=== PATIENT | male | born 1935 | race Caucasian/White ===

== ENCOUNTER 2016-06-21 09:22 | Day surgery (SDC) | payer OTHER, MEDICARE ==
[2016-06-21] MEDS ORDERED: NS 1,000 ML IV ONE (09:23)
[2016-06-21] MEDS ORDERED: diphenhydrAMINE 25 MG CAP PO ONE ×2 (09:23→09:51)
[2016-06-21] MEDS ORDERED: DIAZEPAM 5 MG TAB PO ONE (09:23)
[2016-06-21] MEDS ORDERED: ASPIRIN EC 325 MG TAB PO ONE ×2 (09:23→09:51)
[2016-06-21] MEDS ORDERED: FAMOTIDINE 20 MG TAB PO ONE (09:23)
[2016-06-21] MEDS ORDERED: DIAZEPAM 5 MG TAB ONE (09:51)
[2016-06-21] MEDS ORDERED: FAMOTIDINE 20 MG TAB ONE (09:51)
--- NOTE | 2016-06-21 09:54 | CPEKG ---
Heart Rate: 70 RR Interval: 857 P-R Interval: 200 QRSD Interval: 86 QT Interval: 428 QTC Interval: 462 P [place]: 21 QRS [place]: 21 T Wave [place]: 5 EKG Severity - NORMAL ECG - EKG Impression: SINUS RHYTHM Electronically Signed By: Terrence Arriola 21-Jun-2016 10:55:09
[2016-06-21 10:08] LABS: % IMMATURE GRANULYOCYTES 0.2 % (0.0-1.1); ABSOLUTE IMMATURE GRANULOCYTES 0.01 10^3/uL (0.00-0.10); ADD DIFF? NO; ADD MORPH? NO; ADD SCAN? NO; ATYPICAL LYMPHOCYTE FLAG 10 (0-99); FRAGMENT RBC FLAG 0 (0-99); HEMOGLOBIN 17.7 g/dL (13.7-17.5); LEFT SHIFT FLG 0 (0-99); LIPEMIA HEMOLYSIS FLAG 90 (0-99); MEAN CELL HEMOGLOBIN 31.7 pg (27.9-34.1); MEAN CELL HEMOGLOBIN CONCENTR. 34.7 g/dL (32.4-36.7); MEAN CELL VOLUME 91.2 fL (81.5-99.8); MEAN PLATELET VOLUME 9.4 fL (8.7-11.7); PLATELET CLUMPS FLAG 30 (0-99); PLATELET COUNT 213 10^3/uL (150-400); RED BLOOD CELL COUNT 5.59 10^6/uL (4.40-6.38); RED CELL DISTRIBUTION WIDTH 12.8 % (11.5-15.2)
[2016-06-21 10:28] LABS: INR 1.01 (0.83-1.16); PROTIME(PATIENT) 13.2 SEC (12.0-15.0)
[2016-06-21 10:38] LABS: ANION GAP 13 mEq/L (8-16); CALCIUM 9.5 mg/dL (8.5-10.4); CARBON DIOXIDE 26 mEq/l (22-31); CHLORIDE 108 mEq/L (97-110); CHOLESTEROL 166 mg/dL (140-220); CHOLESTEROL/HDL RATIO 3.53 RATIO (1.00-4.97); CREATININE 0.8 mg/dL (0.7-1.3); GLOMERULAR FILTRATION RATE > 60; GLUCOSE 91 mg/dL (70-100); HIGH DENSITY LIPOPROTEIN 47 mg/dL (40-65); LDL/HDL RATIO 2.26 RATIO (1.00-3.64); LOW DENSITY LIPOPROTEIN 106 mg/dL (80-100); MAGNESIUM 2.2 mg/dL (1.6-2.3); NON-HIGH DENSITY LIPOPROTEIN 119 mg/dL (90-129); POTASSIUM 4.1 mEq/L (3.5-5.2); SODIUM 147 mEq/L (134-144); TRIGLYCERIDE 65 mg/dL (40-150); VERY LOW DENSITY LIPOPROTEINS 13 mg/dL (8-25)
[2016-06-21] MEDS ORDERED: LIDOCAINE 1% 30 ML SDV ONE (10:52)
[2016-06-21] MEDS ORDERED: HEPARIN 10,000 UNIT/10 ML MDV ONE (10:53)
[2016-06-21] MEDS ORDERED: fentaNYL 100 MCG/2 ML INJ ONE (10:53)
[2016-06-21] MEDS ORDERED: VERAPAMIL 5 MG/2 ML VIAL ONE (10:53)
[2016-06-21] MEDS ORDERED: IOPAMIDOL (ISOVUE-370) 150 ML BTL IV ONE ×2 (10:53→11:48)
[2016-06-21] MEDS ORDERED: ONDANSETRON 4 MG/2 ML VIAL IVP PRN (12:10)
[2016-06-21] MEDS ORDERED: NITROGLYCERIN 0.4 MG BTL SL PRN (12:10)
[2016-06-21] MEDS ORDERED: ATROPINE SULFATE 1 MG/10 ML SYR IVP PRN (12:10)
--- NOTE | 2016-06-21 12:16 | PDDXCAT ---
Diagnostic Cath Note - . Date: 06/21/16 Aircraft Maintenance Supervisor: Aurelio Indication: CCC Class III and IV angina on medical treatment - Procedure Access: right wrist Procedure: left heart catheterization, coronary angiography - Materials Left Heart Cath size: 5F Left Heart Cath materials: JL3.5, Cuong's R - Findings-Left Heart Catheterization LM: Unobstructed LAD: Stent patent LCX: 40% mid Circumflex RCA: Unobstructed EDP: 15 mmHg Complications: none Estimated blood loss: <50ml Closure method: TR Band Assessment: Stable 40% circumflex stenosis. Patent LAD stent. Normal filling pressures. Plan: Continue current medical therapy Patient Problems: Problems Problem Status Diagnosed Coronary artery disease Acute Presence of stent in LAD coronary artery Acute Episode of confusion Acute
== END 2016-06-21 16:35 | disposition home or self-care (01) ==
LOC: FCATH 09:22
PROVIDERS: ATTEND Internal Medicine Interventional Cardiology
PROC: 4A023N7 Measurement of Cardiac Sampling and Pressure, Left Heart, Percutaneous Approach (ICD-10-PCS; principal; 2016-06-21)
PROC: B2111ZZ Fluoroscopy of Multiple Coronary Arteries using Low Osmolar Contrast (ICD-10-PCS; 2016-06-21)
DX: I25.119 Atherosclerotic heart disease of native coronary artery with unspecified angina pectoris (principal); Z95.5 Presence of coronary angioplasty implant and graft; E78.5 Hyperlipidemia, unspecified; I10 Essential (primary) hypertension; Z85.46 Personal history of malignant neoplasm of prostate; Z85.528 Personal history of other malignant neoplasm of kidney; Z87.891 Personal history of nicotine dependence; Z85.51 Personal history of malignant neoplasm of bladder
CPT/HCPCS: 93005; 93454; C1769; J1644; J3010; Q9967

== ENCOUNTER → 2017-03-22 | Outpatient (CLI) | payer OTHER, MEDICARE | LOC: GIMAGING 10:58 | PROVIDERS: ATTEND Family Medicine | DX: M50.31 Other cervical disc degeneration, high cervical region (principal); M48.02 Spinal stenosis, cervical region | CPT/HCPCS: 72052-PO ==

== ENCOUNTER 2018-05-10 11:52 | Inpatient (IN) | payer OTHER, MEDICARE ==
[2018-05-10] MEDS ORDERED: ONDANSETRON 4 MG/2 ML VIAL ONE (12:08)
--- NOTE | 2018-05-10 12:14 | EDPHY ---
H & P Stated Complaint: c/o mid back pain x 20 mins, since moving into chest Time Seen by Provider: 05/10/18 12:14 - Personal History Tetanus Vaccine Date: <10 YRS - Medical/Surgical History Hx Asthma: No Hx Chronic Respiratory Disease: No Hx Diabetes: No Hx Cardiac Disease: Yes Hx Renal Disease: No Hx Cirrhosis: No Hx Alcoholism: No Hx HIV/AIDS: No Hx Splenectomy or Spleen Trauma: No Other PMH: hypertension, lung ca right upper lobectomy. cardiac stent. kidney CA. Prostate CA. Bladder CA. HTN-resolved. Cholesterol high. basal skin ca - Social History Smoking Status: Former smoker Constitutional: Initial Vital Signs Heart Rate 50 L 05/10/18 11:58 Respiratory Rate 22 H 05/10/18 11:58 Blood Pressure 105/57 L 05/10/18 11:58 O2 Sat (%) 98 05/10/18 11:58 O2 Delivery Mode Room Air Allergies/Adverse Reactions: midazolam HCl [From Versed] Allergy (Severe, Verified 05/10/18 12:00) HEADACHE morphine [Morphine] Allergy (Severe, Verified 05/10/18 12:00) A FIB Home Medications: Medication Instructions Recorded Ascorbic Acid [Vitamin C 500 mg 500 mg PO DAILY 09/11/15 (*)] Aspirin EC [Aspirin EC 81 mg (*)] 81 mg PO DAILY 09/11/15 Herbals/Supplements -Info Only 1 ea PO DAILY 09/11/15 Vitamin E Acetate [VITAMIN E] 400 unit PO DAILY 09/11/15 amLODIPine BESYLATE [Norvasc 5 mg 5 mg PO DAILY #30 tab 09/12/15 (*)] Niacin 06/21/16 ONCOVITE 06/21/16 Medical Decision Making ED Course/Re-evaluation: CHIEF COMPLAINT: HISTORY OF PRESENT ILLNESS: must have 4 elements: Location, Quality, Severity , Duration, Timing, Context, Modifying Factors, Associated Signs and Symptoms REVIEW OF SYSTEMS: A comprehensive 10 system review of systems is otherwise negative aside from elements mentioned in the history of present illness and medical decision making. PHYSICAL EXAM: HR, BP, O2 Sat, RR. Temp noted General Appearance: Alert, well hydrated, appropriate, and non-toxic appearing. Head: Atraumatic without scalp tenderness or obvious injury Eyes: Pupils equal, round, reactive to light and accommodation, EOMI, no trauma , no injection. Ears: Clear bilaterally, no perforation, normal landmarks Nose: Atraumatic, no rhinorrhea, clear. Throat: There is no erythema or exudates, no lesions, normal tonsils, mucus membranes moist. Neck: Supple, 2+ carotid upstroke, nontender, no lymphadenopathy. Respiratory: No retractions, no distress, no wheezes, and no accessory muscle use. Lungs are clear to auscultation bilaterally. Cardiovascular: Regular rate and rhythm, no murmurs, rubs, or gallops. Bilateral carotid, radial, dorsalis pedis, and posterior tibial pulses intact. Good capillary refill all extremities. Gastrointestinal: Abdomen is soft, nontender, non-distended, no masses, no rebound, no guarding, no peritoneal signs. Musculoskeletal: Normal active ROM of all extremities, atraumatic. Neurological: Alert, appropriate, and interactive. The patient has normal DTRs and non-focal cranial nerves, motor, sensory, and cerebellar exam. Skin: No rashes, good turgor, no nodules on palpation. Past medical history: Past surgical history: Family history: Social history: DIAGNOSTICS/PROCEDURES/CRITICAL CARE TIME: DIFFERENTIAL DIAGNOSIS: MEDICAL DECISION MAKING: Departure - Departure Referrals: Talia Lund MD [Primary Care Provider] - As per Instructions
[2018-05-10] MEDS ORDERED: ONDANSETRON 4 MG/2 ML VIAL IVP ONE (12:21)
[2018-05-10] MEDS ORDERED: NS 1,000 ML IV ONE (12:21)
[2018-05-10] MEDS ORDERED: HYDROmorphONE/DILAUDID 2 MG/ML INJ IVP ONE (12:21)
--- NOTE | 2018-05-10 12:25 | EDPHY ---
H & P Stated Complaint: c/o mid back pain x 20 mins, since moving into chest - Personal History Tetanus Vaccine Date: <10 YRS - Medical/Surgical History Hx Asthma: No Hx Chronic Respiratory Disease: No Hx Diabetes: No Hx Cardiac Disease: Yes Hx Renal Disease: No Hx Cirrhosis: No Hx Alcoholism: No Hx HIV/AIDS: No Hx Splenectomy or Spleen Trauma: No Other PMH: hypertension, lung ca right upper lobectomy. cardiac stent. kidney CA. Prostate CA. Bladder CA. HTN-resolved. Cholesterol high. basal skin ca - Social History Smoking Status: Former smoker Time Seen by Provider: 05/10/18 12:16 Constitutional: Initial Vital Signs Heart Rate 50 L 05/10/18 11:58 Respiratory Rate 22 H 05/10/18 11:58 Blood Pressure 105/57 L 05/10/18 11:58 O2 Sat (%) 98 05/10/18 11:58 O2 Delivery Mode Nasal Cannula O2 (L/minute) 2 Allergies/Adverse Reactions: midazolam HCl [From Versed] Allergy (Severe, Verified 05/10/18 12:00) HEADACHE morphine [Morphine] Allergy (Severe, Verified 05/10/18 12:00) A FIB Home Medications: Medication Instructions Recorded Ascorbic Acid [Vitamin C 500 mg 500 mg PO DAILY 09/11/15 (*)] Aspirin EC [Aspirin EC 81 mg (*)] 81 mg PO DAILY 09/11/15 Herbals/Supplements -Info Only 1 ea PO DAILY 09/11/15 Vitamin E Acetate [VITAMIN E] 400 unit PO DAILY 09/11/15 amLODIPine BESYLATE [Norvasc 5 mg 5 mg PO DAILY #30 tab 09/12/15 (*)] Niacin 06/21/16 ONCOVITE 06/21/16 Medical Decision Making - Diagnostics Imaging: Discussed imaging studies w/ call center rn Radiologist, I viewed and interpreted images myself - Diagnostics Imaging Results: Imaging Impressions Abdomen Ultrasound 05/10/18 12:22 Impression: 1. Cholelithiasis without sonographic evidence of acute cholecystitis apart from reported right upper quadrant pain with probe palpation and aspiration compatible with a positive sonographic Paulino sign. Tommy Bridges was notified of these findings by telephone at 1:08 PM on [address] 05/10/18 13:23 Impression: 1. No evidence of common bile duct stone or regional inflammation to suggest acute cholecystitis. 2. No evidence of metastatic disease. Benign scar of right kidney unchanged since 2012. 3. Hepatic steatosis. 4. Diverticulosis descending and sigmoid colon. No acute diverticulitis or bowel obstruction. Findings discussed with Emergency Department physician, Tommy Bridges MD, on 05/10/2018, 13:57. ED Course/Re-evaluation: CHIEF COMPLAINT: Abdominal pain radiating to back HISTORY OF PRESENT ILLNESS: The patient is an 83 y/o male with a history of an LAD stent and ~40% circumflex occlusion on catheterization June 2016 arriving with his complaining of acute onset severe mid back pain now worse in his abdomen. He was sitting at his desk talking on the phone when he developed sudden severe back pain in the middle of his back. He lied down and used a heating pad and massager on the area and the pain moved more to his abdomen. Pain is located diffusely across his abdomen, but is worst just below his chest. He has associated nausea and vomited on his way to the ED. He can't find a comfortable position and palpation aggravates his pain. He denies chest pain, dyspnea, fever, diarrhea, recent trauma, recent illness. REVIEW OF SYSTEMS: A comprehensive 10 system review of systems is otherwise negative aside from elements mentioned in the history of present illness and medical decision making. PHYSICAL EXAM: HR 50, BP, O2 Sat, RR. Temp noted General Appearance: Alert, well hydrated, appropriate, mildly diaphoretic and pale. Head: Atraumatic without scalp tenderness or obvious injury Eyes: Pupils equal, round, reactive to light and accommodation, EOMI, no trauma , no injection. Nose: Atraumatic, no rhinorrhea, clear. Throat: Mucus membranes moist. Neck: Supple, non-tender, no lymphadenopathy. Respiratory: No retractions, no distress, no wheezes, and no accessory muscle use. Lungs are clear to auscultation bilaterally. Cardiovascular: Regular rate and rhythm, no murmurs, rubs, or gallops. Good capillary refill all extremities. Gastrointestinal: Abdomen is soft, diffuse tenderness worse in RUQ, non- distended, no masses, no rebound, no guarding, no peritoneal signs. Musculoskeletal: Normal active ROM of all extremities, atraumatic. Neurological: Alert, appropriate, and interactive. The patient has non-focal cranial nerves, motor, sensory, and cerebellar exam. Skin: No rashes, good turgor, no nodules on palpation. PAST MEDICAL HISTORY: CAD, lung cancer, kidney cancer 2010, prostate cancer, bladder cancer - all in remission PAST SURGICAL HISTORY: LAD stent 2009, cath 2016, partial kidney resection SOCIAL HISTORY: at bedside. Lives in [place]. PCP: Dr. Lund. Prior medical records reviewed including admission and catheterization [address] Carey. DIAGNOSTICS/PROCEDURES/CRITICAL CARE TIME: The 12 lead EKG was interpreted by myself. Sinus bradycardia with PVC. See hard copy and/or "tracemaster" electronic copy for interpretation. Abdominal US: stone in the neck of the gallbladder without dilation or evidence of cholecystitis. Abdominal CT: negative for cholecystitis or metastatic disease DIFFERENTIAL DIAGNOSIS: The differential diagnosis for the patient's abdominal pain included but was not limited to appendicitis, cholecystitis, hernias, testicular torsion, gastritis, and urinary tract infection. MEDICAL DECISION MAKING: This is an 83 y/o male with a history of CAD and cancer who presents with sudden onset mid back and diffuse abdominal pain. Pain is now worst in this RUQ and radiates through to his back. He has RUQ and diffuse abdominal tenderness on exam. He is bradycardic around 50. Presentation concerning for gallbladder etiology vs other intraabdominal process. ACS less likely. Plan for IV, labs, EKG, RUQ US, and possibly abdominal CT. Symptomatic management with 1L IV NS, 1mg IV Dilaudid, and 4mg IV Zofran. US shows cholelithiasis with no accessory findings. Labs are unremarkable. Due to history and lack of other cholecystitis findings, recommended abdominal CT to rule out any other concerning intraabdominal causes for his pain. CT is negative. Surgery paged. Reassessed patient and discussed findings. 1423: Consulted with Dr. Merrill, surgeon. He will assess patient in the ED. ( Tommy Bridges) Other Provider: Patient seen by surgeon Dr. Merrill in the emergency department. He discussed the case with hospitalist will admit to them and he will consult. I did not personally see or evaluate the patient. Admission order placed by myself. (Lázaro Tinajero) - Data Points Laboratory Results: Laboratory Results 05/10/18 12:10 05/10/18 12:10 05/10/18 05/10/18 05/10/18 12:59 12:10 12:10 WBC RBC Hgb POC Hgb 16.0 gm/dL gm/dL (13.7-17.5) Hct POC Hct 47 % % (40-51) MCV MCH MCHC RDW Plt Count MPV Neut % (Auto) Lymph % (Auto) [place] % (Auto) Eos % (Auto) Baso % (Auto) Nucleat RBC Rel Count Absolute Neuts (auto) Absolute Lymphs (auto) Absolute Monos (auto) Absolute Eos (auto) Absolute Basos (auto) Absolute Nucleated RBC Immature Gran % Immature Gran # PT INR APTT POC Sodium 145 mEq/L mEq/L (135-145) Sodium 141 mEq/L mEq/L (135-145) POC Potassium 3.1 mEq/L L mEq/L (3.3-5.0) Potassium 3.5 mEq/L mEq/L (3.5-5.2) POC Chloride 104 mEq/L mEq/L (97-110) Chloride 106 mEq/L mEq/L (97-110) Carbon Dioxide 25 mEq/l mEq/l (22-31) Anion Gap 10 mEq/L mEq/L (6-14) POC BUN 11 mg/dL mg/dL (7-23) BUN 14 mg/dL mg/dL (7-23) Creatinine 0.8 mg/dL mg/dL (0.7-1.3) POC Creatinine 0.9 mg/dL mg/dL (0.7-1.3) Estimated GFR > 60 Glucose 112 mg/dL H mg/dL (70-100) POC Glucose 116 mg/dL H mg/dL (70-100) Calcium 9.0 mg/dL mg/dL (8.5-10.4) Total Bilirubin 0.9 mg/dL mg/dL (0.1-1.4) Conjugated Bilirubin 0.4 mg/dL mg/dL (0.0-0.5) Unconjugated Bilirubin 0.5 mg/dL mg/dL (0.0-1.1) AST 28 IU/L IU/L (17-59) ALT 37 IU/L IU/L (21-72) Alkaline Phosphatase 75 IU/L IU/L (38-126) Troponin I < 0.012 ng/mL ng/mL (0.000-0.034) Total Protein 7.0 g/dL g/dL (6.3-8.2) Albumin 4.2 g/dL g/dL (3.5-5.0) Lipase 152 IU/L IU/L (23-300) 05/10/18 05/10/18 12:10 12:10 WBC 7.39 10^3/uL 10^3/uL (3.80-9.50) RBC 5.20 10^6/uL 10^6/uL (4.40-6.38) Hgb 16.1 g/dL g/dL (13.7-17.5) POC Hgb Hct 48.0 % % (40.0-51.0) POC Hct MCV 92.3 fL fL (81.5-99.8) MCH 31.0 pg pg (27.9-34.1) MCHC 33.5 g/dL g/dL (32.4-36.7) RDW 13.3 % % (11.5-15.2) Plt Count 221 10^3/uL 10^3/uL (150-400) MPV 9.5 fL fL (8.7-11.7) Neut % (Auto) 45.0 % % (39.3-74.2) Lymph % (Auto) 44.0 % % (15.0-45.0) [place] % (Auto) 7.4 % % (4.5-13.0) Eos % (Auto) 2.7 % % (0.6-7.6) Baso % (Auto) 0.8 % % (0.3-1.7) Nucleat RBC Rel Count 0.0 % % (0.0-0.2) Absolute Neuts (auto) 3.32 10^3/uL 10^3/uL (1.70-6.50) Absolute Lymphs (auto) 3.25 10^3/uL H 10^3/uL (1.00-3.00) Absolute Monos (auto) 0.55 10^3/uL 10^3/uL (0.30-0.80) Absolute Eos (auto) 0.20 10^3/uL 10^3/uL (0.03-0.40) Absolute Basos (auto) 0.06 10^3/uL 10^3/uL (0.02-0.10) Absolute Nucleated RBC 0.00 10^3/uL 10^3/uL (0-0.01) Immature Gran % 0.1 % % (0.0-1.1) Immature Gran # 0.01 10^3/uL 10^3/uL (0.00-0.10) PT 13.4 SEC SEC (12.0-15.0) INR 1.00 (0.83-1.16) APTT 26.0 SEC SEC (23.0-38.0) POC Sodium Sodium POC Potassium Potassium POC Chloride Chloride Carbon Dioxide Anion Gap POC BUN BUN Creatinine POC Creatinine Estimated GFR Glucose POC Glucose Calcium Total Bilirubin Conjugated Bilirubin Unconjugated Bilirubin AST ALT Alkaline Phosphatase Troponin I Total Protein Albumin Lipase Medications Given: Discontinued Medications Hydromorphone HCl (Dilaudid) 1 mg IVP EDNOW ONE Stop: 05/10/18 12:22 Last Admin: 05/10/18 12:39 Dose: 1 mg Sodium Chloride (Ns) 1,000 mls @ 0 mls/hr IV EDNOW ONE; Wide Open PRN Reason: Protocol Stop: 05/10/18 12:22 Last Admin: 05/10/18 12:41 Dose: 1,000 mls Famotidine 20 mg/ Sodium (Chloride) 102 mls @ 408 mls/hr IV EDNOW ONE Stop: 05/10/18 16:11 Last Admin: 05/10/18 16:06 Dose: Not Given Ondansetron HCl (Zofran) 4 mg IVP EDNOW ONE Stop: 05/10/18 12:22 Last Admin: 05/10/18 12:38 Dose: 4 mg Point of Care Test Results: Chemistry 05/10/18 12:59 POC Sodium 145 mEq/L mEq/L (135-145) POC Potassium 3.1 mEq/L L mEq/L (3.3-5.0) POC Chloride 104 mEq/L mEq/L (97-110) POC BUN 11 mg/dL mg/dL (7-23) POC Creatinine 0.9 mg/dL mg/dL (0.7-1.3) POC Glucose 116 mg/dL H mg/dL (70-100) ISTAT H&H 05/10/18 12:59 POC Hgb 16.0 gm/dL gm/dL (13.7-17.5) POC Hct 47 % % (40-51) Departure - Departure Disposition: [facility] Inpatient Acute Clinical Impression: Cholelithiasis Qualifiers: Cholelithiasis location: bile duct Cholecystitis presence: without cholecystitis Biliary obstruction: with biliary obstruction Qualified Code(s): K80.51 - Calculus of bile duct without cholangitis or cholecystitis with obstruction Condition: Fair Report Scribed for: Tommy Bridges Report Scribed by: Nanette Jerez Date of Report: 05/10/18 Time of Report: 14:15
[2018-05-10 12:28] LABS: PLATELET COUNT 221 10^3/uL (150-400)
[2018-05-10 12:43] LABS: PROTIME(PATIENT) 13.4 SEC (12.0-15.0)
[2018-05-10] MEDS ORDERED: IOPAMIDOL (ISOVUE-300) 100 ML BTL ONE ×2 (13:27→13:29)
--- NOTE | 2018-05-10 14:32 | CPEKG ---
Test Reason : OPEN Blood Pressure : / mmHG Vent. Rate : 048 BPM Atrial Rate : 047 BPM P-R Int : 250 ms QRS Dur : 087 ms QT Int : 497 ms P-R-T Axes : -03 012 001 degrees QTc Int : 445 ms Sinus bradycardia Ventricular premature complex Prolonged MD interval Confirmed by Tommy Bridges ([id number]) on 05/10/2018 2:31:48 PM Referred By: Confirmed By:Tommy Bridges
--- NOTE | 2018-05-10 15:40 | PDCONSULT ---
Transfer Table Operator Helper Note: Surgical Consult requested by Dr. Coronado 83 y/o male with sudden onset back pain, nausea and bloating came to the ED for evaluation. Ultrasound shows a small stone in the gallbladder without wall thickening, CBD is normal, LFTs and lipase are normal. Patient feels better after getting narcotics in the ED. He has a coronary stent and history of Shawn's esophagitis as well as a history of lung cancer, kidney cancer and bladder cancer. He is currently in the ED with his at the bedside. PE: P 42-60 BP 109/75 R 16 T 36.9 O2 sat 94% 2 lpm Pleasant gentleman in NAD HEENT: no scleral icterus, no adenopathy Lungs: CTA CVS: RRR Abd: protruberant, tympanitic, mild diffuse upper abdominal tenderness without guarding or rebound, no HSM/mass cbc, LFTs, lipase wnl Imp: cholelithiasis abd pain, resolving CAD s/p stent placement on ASA Hx Ernandez's Hx lung, renal and bladder cancer Rec: HIDA scan, admit observation S MD Garfield, FACS
[2018-05-10] MEDS ORDERED: ACETAMINOPHEN 325 MG TAB PO PRN (15:52)
[2018-05-10] MEDS ORDERED: ONDANSETRON 4 MG/2 ML VIAL IVP PRN (15:52)
[2018-05-10] MEDS ORDERED: ONDANSETRON DISINTEGRATING 4 MG TAB PO PRN (15:52)
[2018-05-10] MEDS ORDERED: FAMOTIDINE 20 MG/2 ML SDV ONE (15:54)
[2018-05-10] MEDS ORDERED: FAMOTIDINE 20 MG in NS 100 ML IV ONE (15:57)
--- NOTE | 2018-05-10 16:04 | PDGENHP ---
History and Physical - Chief Complaint abd pain - History of Present Illness The patient is an 83 y/o male with a history of an LAD stent and ~40% circumflex occlusion on catheterization June 2016 presenting with acute onset severe mid back pain now worse in his abdomen. He was sitting at his desk talking on the phone when he developed sudden severe back pain in the middle of his back. He lied down and used a heating pad and massager on the area and the pain moved more to his abdomen. Pain is located diffusely across his abdomen, but is worst just below his chest. He has associated nausea and vomited on his way to the ED. He had a US which showed cholelithiasis. A f/u CT A/P was showed distend GB but no significant e/o of Acute Cholecystitis. His ER abd exam was c/w RUQ tenderness. Surgery was asked to admit but after their evaluation, it is not believed that the patients GB is the etiology of the pain and we have been asked to admit the patient. A HIDA scan has been ordered He does have a hx of CAD and had a cardiac cath in 2017. An EKG shows Sinus Melo but no ischemic changes. A troponin was not checked. He denies chest pain, dyspnea, fever, diarrhea, recent trauma, recent illness. He has been afebrile. No Leukocytosis PAST MEDICAL HISTORY: CAD, lung cancer, kidney cancer 2010, prostate cancer, bladder cancer - all in remission PAST SURGICAL HISTORY: LAD stent 2009, cath 2016, partial kidney resection SOCIAL HISTORY: at bedside. Lives in [place]. PCP: Dr. Lund. FAMILY HISTORY: Non contributory Data: EKG per above Abdominal US: stone in the neck of the gallbladder without dilation or evidence of cholecystitis. Abdominal CT: negative for cholecystitis or metastatic disease History Information - Allergies/Home Medication List Allergies/Adverse Reactions: midazolam HCl [From Versed] Allergy (Severe, Verified 05/10/18 12:00) HEADACHE morphine [Morphine] Allergy (Severe, Verified 05/10/18 12:00) A FIB Home Medications: Ascorbic Acid [Vitamin C 500 mg (*)] 2,000 mg PO DAILY 09/11/15 [Last Taken ] Aspirin EC [Aspirin EC 81 mg (*)] 81 mg PO DAILY 09/11/15 [Last Taken 05/09/18] Herbals/Supplements -Info Only 1 ea PO DAILY 09/11/15 [Last Taken 06/14/16] Niacin ER [Niaspan 500 mg (*)] 500 mg PO HS 05/10/18 [Last Taken 05/09/18] I have personally reviewed and updated: medical history, social history - Social History Smoking Status: Former smoker Review of Systems Review of Systems: ROS: 10pt was reviewed & negative except for what was stated in HPI & below Physical Exam Physical Exam: Temp Pulse Resp BP Pulse Ox 48 L 16 109/65 94 05/10/18 14:39 05/10/18 14:39 05/10/18 14:39 05/10/18 14:39 Constitutional: no apparent distress Eyes: PERRL, EOMI Ears, Nose, Mouth, Throat: moist mucous membranes, hearing normal Cardiovascular: regular rate and rhythym, No edema Respiratory: no respiratory distress, no rales or rhonchi, clear to auscultation Gastrointestinal: normoactive bowel sounds, soft, non-tender abdomen, No guarding, No rebound, No distension Skin: warm Neurologic: AAOx3 Psychiatric: interacting appropriately, not anxious, not encephalopathic Lymph, Heme, Immunologic: No petechiae Lab Data & Imaging Review 05/10/18 12:10 05/10/18 12:10 WBC 7.39 10^3/uL (3.80-9.50) 05/10/18 12:10 RBC 5.20 10^6/uL (4.40-6.38) 05/10/18 12:10 Hgb 16.1 g/dL (13.7-17.5) 05/10/18 12:10 POC Hgb 16.0 gm/dL (13.7-17.5) 05/10/18 12:59 Hct 48.0 % (40.0-51.0) 05/10/18 12:10 POC Hct 47 % (40-51) 05/10/18 12:59 MCV 92.3 fL (81.5-99.8) 05/10/18 12:10 MCH 31.0 pg (27.9-34.1) 05/10/18 12:10 MCHC 33.5 g/dL (32.4-36.7) 05/10/18 12:10 RDW 13.3 % (11.5-15.2) 05/10/18 12:10 Plt Count 221 10^3/uL (150-400) 05/10/18 12:10 MPV 9.5 fL (8.7-11.7) 05/10/18 12:10 Neut % (Auto) 45.0 % (39.3-74.2) 05/10/18 12:10 Lymph % (Auto) 44.0 % (15.0-45.0) 05/10/18 12:10 [place] % (Auto) 7.4 % (4.5-13.0) 05/10/18 12:10 Eos % (Auto) 2.7 % (0.6-7.6) 05/10/18 12:10 Baso % (Auto) 0.8 % (0.3-1.7) 05/10/18 12:10 Nucleat RBC Rel Count 0.0 % (0.0-0.2) 05/10/18 12:10 Absolute Neuts (auto) 3.32 10^3/uL (1.70-6.50) 05/10/18 12:10 Absolute Lymphs (auto) 3.25 10^3/uL (1.00-3.00) H 05/10/18 12:10 Absolute Monos (auto) 0.55 10^3/uL (0.30-0.80) 05/10/18 12:10 Absolute Eos (auto) 0.20 10^3/uL (0.03-0.40) 05/10/18 12:10 Absolute Basos (auto) 0.06 10^3/uL (0.02-0.10) 05/10/18 12:10 Absolute Nucleated RBC 0.00 10^3/uL (0-0.01) 05/10/18 12:10 Immature Gran % 0.1 % (0.0-1.1) 05/10/18 12:10 Immature Gran # 0.01 10^3/uL (0.00-0.10) 05/10/18 12:10 PT 13.4 SEC (12.0-15.0) 05/10/18 12:10 INR 1.00 (0.83-1.16) 05/10/18 12:10 APTT 26.0 SEC (23.0-38.0) 05/10/18 12:10 POC Sodium 145 mEq/L (135-145) 05/10/18 12:59 Sodium 141 mEq/L (135-145) 05/10/18 12:10 POC Potassium 3.1 mEq/L (3.3-5.0) L 05/10/18 12:59 Potassium 3.5 mEq/L (3.5-5.2) 05/10/18 12:10 POC Chloride 104 mEq/L (97-110) 05/10/18 12:59 Chloride 106 mEq/L (97-110) 05/10/18 12:10 Carbon Dioxide 25 mEq/l (22-31) 05/10/18 12:10 Anion Gap 10 mEq/L (6-14) 05/10/18 12:10 POC BUN 11 mg/dL (7-23) 05/10/18 12:59 BUN 14 mg/dL (7-23) 05/10/18 12:10 Creatinine 0.8 mg/dL (0.7-1.3) 05/10/18 12:10 POC Creatinine 0.9 mg/dL (0.7-1.3) 05/10/18 12:59 Estimated GFR > 60 05/10/18 12:10 Glucose 112 mg/dL (70-100) H 05/10/18 12:10 POC Glucose 116 mg/dL (70-100) H 05/10/18 12:59 Calcium 9.0 mg/dL (8.5-10.4) 05/10/18 12:10 Total Bilirubin 0.9 mg/dL (0.1-1.4) 05/10/18 12:10 Conjugated Bilirubin 0.4 mg/dL (0.0-0.5) 05/10/18 12:10 Unconjugated Bilirubin 0.5 mg/dL (0.0-1.1) 05/10/18 12:10 AST 28 IU/L (17-59) 05/10/18 12:10 ALT 37 IU/L (21-72) 05/10/18 12:10 Alkaline Phosphatase 75 IU/L (38-126) 05/10/18 12:10 Total Protein 7.0 g/dL (6.3-8.2) 05/10/18 12:10 Albumin 4.2 g/dL (3.5-5.0) 05/10/18 12:10 Lipase 152 IU/L (23-300) 05/10/18 12:10 Assessment & Plan Assessment: #Abd Pain #Cholelithiasis #Sinus Bradycardia #Hx of CAD #HTN with soft BP #Hypokalemia Plan: The patient had an episode of emesis shortly before I saw him. He denies any cp or sob currently but the pt's says he may have had some chest pain earlier. He describes mid epigastric pain. We will wait for the HIDA scan to return. He will be NPO. I will provide IVF and antiemetics. The etiology of his pain is unclear. Will provide a trial of PPI I dont think his sx's are cardiac related. We did check a troponin and this is negative. Given his hx and his reporting some HAYWARD, I will obtain a CXR, TTE , and place him on telemetry. A repeat trop will be ordered as well. I will not stress him yet as most of his sx's are abd related pain. Replace K Restart appropriate home meds SCD's
[2018-05-10] MEDS: NS W/ 20 KCl/L 1,000 ML IV SCH (16:32)
[2018-05-10] MEDS ORDERED: PROTOCOL POTASSIUM 1 DOSE MISC PRN (16:54)
[2018-05-10] MEDS ORDERED: PROTOCOL MAGNESIUM 1 DOSE IV PRN (16:54)
[2018-05-10] MEDS ORDERED: HYDROmorphONE/DILAUDID 1 MG/ML INJ IVP PRN (19:40)
[2018-05-11] MEDS: NS W/ 20 KCl/L 1,000 ML IV SCH (04:07)
[2018-05-11 04:53] LABS: PLATELET COUNT 178 10^3/uL (150-400)
--- NOTE | 2018-05-11 06:11 | SOAPPROG ---
SOAP Progress Note Assessment/Plan: Assessment: cholelithiasis presenting with abdominal pain-resolved CAD s/p coronary stent Hx lung, kidney, bladder cancer Plan: HIDA scan this AM. If no evidence of cystic duct obstruction advance to low fat diet. If gallbladder is not visualized, indicating cystic duct obstruction, I would recommend proceeding with lap cholecystectomy Valery Merrill MD, FACS 05/11/18 06:08 Subjective: feeling better, no longer experiencing pain Objective: Vital Signs Temp Pulse Resp BP Pulse Ox 36.6 C 58 L 18 130/72 H 96 05/11/18 04:00 05/11/18 04:00 05/11/18 04:00 05/11/18 04:00 05/11/18 04:00 Laboratory Results 05/11/18 04:12 05/11/18 04:12 05/10/18 05/11/18 05/12/18 05:59 05:59 05:59 Intake Total 1310 Output Total 1800 Balance -490 PT 13.4 SEC (12.0-15.0) 05/10/18 12:10 INR 1.00 (0.83-1.16) 05/10/18 12:10 Physical Exam - Physical Exam General Appearance: no apparent distress Respiratory: lungs clear Cardiac/Chest: regular rate, rhythm Abdomen: normal bowel sounds, non-tender, soft, other Male Genitalia: deferred Rectal: deferred Neuro/Psych: alert, normal mood/affect, oriented x 3 ICD10 Worksheet Patient Problems: Problems Problem Status Onset Cholelithiasis Acute Coronary artery disease Acute Episode of confusion Acute Presence of stent in LAD coronary artery Acute
--- NOTE | 2018-05-11 09:14 | PDMN ---
Medical Necessity Medical necessity: Pt meets IP criteria as of 05/10/2018 per and [facility] M-05 ( abdominal pain); est los > 2 mn for ongoing tx and management of acute abdominal pain and cholelithiasis with nausea, vomiting, bradycardia, and hypokalemia; requiring further workup, NPO status, IVF, and pain and nausea control.
--- NOTE | 2018-05-11 11:36 | ASMTCMCOM ---
CM Note CM Note Notes: Pt in for abd pain, may need lap choly. Pt resides with . No therapies ordered. Anticipate pt will d/c independent when medically stable. No CM d/c needs identified. CM available for changes/needs. D/c plan of care: Independent Date Signed: 05/11/2018 11:36 AM Electronically Signed By:TANG Morrow
[2018-05-11] MEDS ORDERED: POTASSIUM CL 10 MEQ TAB PO ONE (11:40)
[2018-05-11 11:54] VITALS: BP 130/77
--- NOTE | 2018-05-11 12:41 | GDS ---
DISCHARGE DIAGNOSES: Acute abdominal pain. CONSULTATIONS: Surgery. STUDIES AND PROCEDURES DONE: 1. Abdominal ultrasound. 2. Abdominal CT. 3. Chest x-ray. 4. HIDA scan. PHYSICAL EXAM: GENERAL: The patient is alert. VITAL SIGNS: Afebrile at 36.7, pulse is 66, respira tory rate 15. Blood pressure is 130/77, saturating 91% on room air. [facility]. HOSPITAL COURSE: 1. The patient is an 83-year-old male who presented to the emergency room with complaints of acute o nset right upper quadrant pain. He was evaluated during this hospitalization and diagnosed with poss ible cholecystitis per HIDA scan. I have discussed the patient's care with Dr. Sravan Valencia. The patient is tolerating a regular diet. He has no further abdominal pain. Laparoscopic cholecystecto my has been offered to the patient who is refusing. He wishes to be discharged home to return for fo llowup in the outpatient setting if his pain should recur. He is afebrile with no signs of acute inf ectious process. 2. Sinus bradycardia. During this hospitalization, echocardiogram was performed. The preliminary r eport is within normal limits. We will wait for final read to be evaluated by his primary care physi riana. He has been asymptomatic and hemodynamically stable during this hospital course. 3. Hypokalemia. Potassium replacement has been provided. His potassium is stable prior to disposit ion. DISCHARGE: He will be discharged home to follow up in the outpatient setting with his primary care sandip rosales, Dr. Talia Lund, as well as Dr. Sravan Valencia of Surgery. He has been instructed to r eturn to the emergency room if his pain should recur or he develops fever with nausea, vomiting, or d iarrhea. He is in agreement with this plan. DISCHARGE MEDICATIONS: Please refer to EMR form. I have not provided any prescriptions for the carmencita ent at the time of disposition. TIME SPENT: I spent greater than 35 minutes in the care, coordination, and management of the patient 's disposition. /[id number]/MODL
--- NOTE | 2018-05-11 15:44 | ECHO ---
[email or web address] [address] [address] Main: [phone] Fax: Transthoracic Echocardiogram Name: OLIMPIA NOGUERA MR#: [id number] Study Date: 05/11/2018 Study Time: 11:09 AM Date of : 1935 Age: 83 year(s) Height: ( ) Weight: 70.31 kg (155 lb.) BSA: Gender: Male Examination: Echo Indication: Bradycardia/SOB, HX stent Image Quality: Contrast: Requested by: Pual Fierro BP: 132 mmHg/74 mmHg Heart Rate: Rhythm: Indication: Bradycardia/SOB, HX stent Procedure Staff Lending Manager: Lizzy Mathews [facility] Reading Physician: Jose Valle MD Requesting Provider: Conclusions: Normal size left ventricle. The ejection fraction is estimated to be 70-75 %. No regional wall motion abnormality. Mild mitral valve regurgitation is present. Trivial to mild aortic valve regurgitation. Mild tricuspid regurgitation is present. RVSP is 38mmHG. No pericardial effusion. No prior study for comparison. Measurements: Chambers Valvular Assessment AV/MV Valvular Assessment TV/PV Normal Normal Normal Name Value Range Name Value Range Name Value Range Ao Joann (MM): 3.7 cm (2.2 cm-3.7 AV Vmax: 1.80 m/s (1 m/s-1.7 TR Vmax: 2.87 mm/s ( - ) cm) m/s) TR PGmax: 33 mmHg ( - ) IVSd (2D): 0.9 cm (0.6 cm-1.1 AV meanP mmHg ( - ) syst. PAP: 38 mmHg ( - ) cm) MV E Vmax: 0.68 m/s ( - ) LVDd (2D): 4.6 cm (4.2 cm-5.9 MV A Vmax: 0.63 m/s ( - ) cm) MV E/A: 1.08 ( - ) LVDs (2D): 3.1 cm (2.1 cm-4 cm) LVPWd (2D): 1.0 cm (0.6 cm-1 cm) LVEF (MOD4): 71 % (>=55 %) EF Range: 70-75 % Continued Measurements: Chambers Valvular Assessment AV/MV Valvular Assessment TV/PV Patient: OLIMPIA NOGUERA Study Date: 05/11/2018 Page 1 of 2 11:09 AM Name Value Name Value Name Value LADs: 4.1 cm MV E' Septal: 0.06 m/s CVP (est.): 5 mmHg LADs Lon.5 cm MV E/E' Septal: 11.80 LA Area: 18.0 cm2 MV E/E' Lateral: 8.80 LA Volume: 48 ml Additional Vessels Name Value Ao Ascendin.9 cm Findings: Left Ventricle: Normal size left ventricle. No LV hypertrophy. Normal global systolic LV function. The ejection fraction is estimated to be 70-75 %. No regional wall motion abnormality. Normal diastolic LV function. Right Ventricle: Normal size right ventricle. Left Atrium: The left atrium is normal in size. Right Atrium: The right atrium is normal in size. Mitral Valve: The mitral valve is normal in appearance. Mild mitral valve regurgitation is present. Aortic Valve: The aortic valve is normal in appearance. Trivial to mild aortic valve regurgitation. Tricuspid Valve: The tricuspid valve is normal in appearance and function. Mild tricuspid regurgitation is present. RVSP is 38mmHG. Pulmonic Valve: The pulmonic valve is normal in appearance and function. Aorta: The aorta is normal. Pericardium: No pericardial effusion. (No Signature Object) Patient: OLIMPIA NOGUERA Study Date: 05/11/2018 Page 2 of 2 11:09 AM [id number]
[2018-05-12] MEDS ORDERED: BUPIVACAINE/EPI 0.25% 30 ML SDV ONE (10:44)
== END 2018-05-11 13:12 | disposition home or self-care (01) | DRG 392 ==
LOC: F3E 18:14
PROVIDERS: ADMIT Family Medicine; ATTEND Internal Medicine
DX: R10.11 Right upper quadrant pain (principal); K80.20 Calculus of gallbladder without cholecystitis without obstruction; E87.6 Hypokalemia; I10 Essential (primary) hypertension; R00.1 Bradycardia, unspecified; I25.10 Atherosclerotic heart disease of native coronary artery without angina pectoris; Z95.5 Presence of coronary angioplasty implant and graft; Z85.51 Personal history of malignant neoplasm of bladder; Z85.118 Personal history of other malignant neoplasm of bronchus and lung; Z85.528 Personal history of other malignant neoplasm of kidney
CPT/HCPCS: 82435-PO; 82565-PO; 82947-PO; 84132-PO; 84295-PO; 84520-PO; 85014-PO; 96374; A9537; J1170; J2405; Q9967